=== PATIENT | male | born 1940 | race Caucasian/White ===

== ENCOUNTER → 2023-01-20 10:32 | Outpatient (CLI) | payer MEDICARE, SELFPAY ==
--- NOTE | 2023-01-20 10:33 | DI.MRI.S_ITS ---
PROCEDURE: MR PELVIC PROSTATE PROTOCOL INDICATIONS: elevated psa TECHNIQUE: Coronal HASTE, axial T1 FSE with fat saturation, 3-plane nonbreath-hold T2 FSE. After the administration of contrast, dynamic axial, delayed axial and coronal VIBE or 2-D FLASH with fat saturation through the pelvis. Diffusion weighted imaging and ADC was performed. COMPARISON: None. FINDINGS: Image quality: Diffusion weighted and dynamic contrast enhanced images are diagnostic. Prostate: Gland size is 6.1 x 5.1 x 4.7 cm; ellipsoid gland volume is 76 mL. Lesion 1: Location: Left posterior peripheral zone at the mid gland to apex level, on axial series 5, image 14 and coronal series 6, image 18. Size: 2.6 cm in oblique transverse diameter. T2W signal: Hypointense. Irregular shaped lesion with indistinct margins. DWI signal: Moderately hyperintense ADC signal: Moderately hypointense Enhancement: Yes Extracapsular extension: Possible extracapsular extension without definite neurovascular involvement. PI-RADS score: 5 At least 2, possibly 3 other foci within the right and left transition zones at mid gland level demonstrating indistinct moderate T2 hypointensity, moderate restricted diffusion and heterogeneously hypointense ADC signal. 1 in the right posterolateral transition zone at mid gland base measures 0.8 cm measured on diffusion-weighted sequence 25 image 11. No dynamic enhancement. PI-RADS 4. Genitourinary system: Bladder wall thickness is normal. Multiple tiny left posterolateral diverticula. Distal ureters are non distended. Bowel and peritoneum: No pathologic free pelvic fluid. Inferior colon and small bowel loops are normal in caliber. Nodes and vessels: No pelvic or inguinal adenopathy by size criteria. Iliac vessels are normal in caliber. Soft tissues: No inguinal hernias. Bones: Bilateral hip joint effusions. Fatty replacement of the right paraspinal muscle in the lumbosacral spine, probably due to prior surgical intervention. Marrow demonstrates normal overall signal, without lesions to suggest metastases. IMPRESSION: 1. PI-RADS 5 peripheral zone lesion on the left at a mid gland to apex level. 2. A few other smaller bilateral transition zone lesions with differential diagnosis of BPH nodules, PI-RADS score 4. 3. No pelvic lymphadenopathy by size criteria. No aggressive osseous abnormality. Dictated by: Whit Scott M.D. on 01/21/2023 at 9:44 Approved by: Whit Scott M.D. on 01/21/2023 at 10:12
== END ==
LOC: MRI 10:33
PROVIDERS: PCP Family Medicine; Referring Provider Specialist; Visit Provider Specialist
DX: N42.9 Disorder of prostate, unspecified (principal); R97.20 Elevated prostate specific antigen [PSA]
CPT/HCPCS: 72197; A9579